=== PATIENT | male | born 1965 | race Caucasian/White ===

== ENCOUNTER 2020-12-19 01:25 | Day surgery (SDC) | payer OTHER, SELFPAY ==
[2020-12-05 14:36] VITALS: BMI 28.1
[2020-12-19 11:49] VITALS: BP 178/93; PULSE 81; RESP 20; TEMP 36.2; O2SAT 99; BMI 27.8
--- NOTE | 2020-12-19 11:57 | WPDGICN ---
Assessment and Plan Assessment and plan (1) History of colon polyps: Code(s): Z86.010 - Personal history of colonic polyps Status: Acute Assessment and Plan: Patient has a history of multiple colon polyps removed from the colon 2018. He presents today for surveillance follow-up colonoscopy. The recommendations will be given after endoscopy. GI Consult Note Consult date/time: 12/19/20 11:57 HPI: Bruce Solis is a 55 year old male Presents for surveillance colonoscopy. Patient has a history of multiple colon polyps identified and removed from the colon in 2018. Patient reports his current weight appetite bowel movements are normal. He denies abdominal pain. He has had no bleeding. His family history is noncontributory. Review of Systems Review of Systems: All systems reviewed & are unremarkable except as noted in HPI and below PMFSH Past Medical History Medical History (Updated 12/19/20 @ 11:59 by Elton An MD) Rib fracture Surgical History Surgical History H/O: hysterectomy Family History Family History Mother Hypertension Family history of elevated blood lipids Other No family history of cardiovascular disease Social History Social History (Updated 11/03/20 @ 10:02 by Marquita Whittaker PA-C) Smoking packs per day: 1 Smoking cigarettes per day: 20.0 Years smoked: 20 Smoking pack-years: 20.00 Smoking status: Former smoker Tobacco type: cigarettes Alcohol intake: current Drinks per week: 6 Living arrangements: with family Spiritual care concerns: No Meds Home Medications and Allergies Home Medications Medication Instructions Recorded Confirmed Type simvastatin 10 mg tablet 10 mg PO DAILY #90 tablet 07/24/20 12/05/20 Rx Allergies Allergy/AdvReac Type Severity Reaction Status Date / Time No Known Allergies Allergy Verified 12/19/20 11:48 Vital Signs Vital Signs - 24 hr 12/19/20 11:49 Temperature 97.1 F L Pulse Rate 81 Respiratory Rate 20 Blood Pressure 178/93 H Pulse Oximetry 99 Exam Narrative: Physical exam reveals patient to be alert. Vital signs stable. HEENT exam is unremarkable. Patient is anicteric. Lungs are clear to auscultation and percussion. Heart is without murmur or extra sounds. Abdominal exam bowel sounds are present soft nontender with no organomegaly. Digital external rectal exam is normal.
[2020-12-19] MEDS: LACTATED RINGERS 1,000 ML 150 ML IV CONT (12:03)
--- NOTE | 2020-12-19 12:12 | P.PNAN_ITS ---
Anes - Initial Pre Proc Eval Procedure: Operation Date: 12/19/20 13:00 Proposed Procedures p Screening Colonoscopy - Elton An MD Date/Time: 12/19/20 12:12 Surgeon: Elton An MD Pre Op Diagnosis: hx of colon polyps Patient Data Age: 55 Gender: M Height: 1.93 m Weight: 103.6 kg Last Vital Signs Temp 97.1 F L 12/19/20 11:49 Pulse 81 12/19/20 11:49 Resp 20 12/19/20 11:49 BP 178/93 H 12/19/20 11:49 Pulse Ox 99 12/19/20 11:49 Allergies Allergy/AdvReac Type Severity Reaction Status Date / Time No Known Allergies Allergy Verified 12/19/20 11:48 Home Medications Medication Instructions Recorded Confirmed Type simvastatin 10 mg tablet 10 mg PO DAILY #90 tablet 07/24/20 12/05/20 Rx Patient hx anesthesia problems: none Family hx anesthesia problems: none Results Review: All pre-operative results and documents have been reviewed as part of the pre-operative evaluation. [facility] Past Medical History Medical History (Updated 12/19/20 @ 12:12 by Gennaro Silver MD) Mixed hyperlipidemia Prehypertension Rib fracture Surgical History Surgical History H/O: hysterectomy Family History Family History Mother Hypertension Family history of elevated blood lipids Other No family history of cardiovascular disease Social History Social History (Updated 11/03/20 @ 10:02 by Marquita Whittaker PA-C) Smoking packs per day: 1 Smoking cigarettes per day: 20.0 Years smoked: 20 Smoking pack-years: 20.00 Smoking status: Former smoker Tobacco type: cigarettes Alcohol intake: current Drinks per week: 6 Living arrangements: with family Spiritual care concerns: No Anes - Eval Final PreProcedure Day of Procedure 12/19/20 12:12 Patient weight: overweight Heart: regular rate and rhythm Lungs: clear to auscultation Airway: Mallampati scale class II Neurological: alert and oriented Last oral intake: >/= 8 hours ASA classification: II Emergent: no Anesthetic plan: proceed Anesthesia type and monitoring: general GIVS and standard monitoring Results Review: All pre-operative results and documents have been reviewed as part of the pre-operative evaluation. Informed Consent: The patient's anesthetic plan and its attendant risks and benefits were discussed with the patient/family/POA. Questions were solicited and answers provided to the satisfaction of the patient/family/POA.
[2020-12-19 12:52] VITALS: BP 108/77; PULSE 85; RESP 16; O2SAT 97
[2020-12-19 13:02] VITALS: BP 116/82; PULSE 68; RESP 14; O2SAT 96
[2020-12-19 13:12] VITALS: BP 118/84; PULSE 70; RESP 16; O2SAT 96
== END 2020-12-19 13:27 | disposition home or self-care (01) ==
PROVIDERS: PCP Family Medicine; Visit Provider Internal Medicine Gastroenterology
PROC: 0DJD8ZZ Inspection of Lower Intestinal Tract, Via Natural or Artificial Opening Endoscopic (ICD-10-PCS; CPT 45378; principal; 2020-12-19 13:00)
DX: Z12.11 Encounter for screening for malignant neoplasm of colon (principal); K63.5 Polyp of colon; E78.5 Hyperlipidemia, unspecified; Z87.891 Personal history of nicotine dependence
CPT/HCPCS: 45385; 88305; J2001; J2704; J7120

== ENCOUNTER 2021-06-10 13:16 | Emergency (ER) | payer OTHER, SELFPAY ==
--- NOTE | 2021-06-10 13:20 | ED.WOUNDLAC ---
HPI - Wound/Laceration General Chief Complaint: Wound/Laceration Stated Complaint: THUMB LACERATION Time Seen by Provider: 06/10/21 13:20 Source: patient Mode of arrival: ambulatory Limitations: no limitations History of Present Illness HPI narrative: Mr. Solis is a 56-year-old male patient presenting to the clinic today with complaints of a cut to his left thumb from a chainsaw that occurred this morning while at work. He reports he does not think that sutures are needed as he did not cut it very much however he is not up-to-date on his tetanus shot and is requesting one today. Bleeding controlled. Related Data Allergies Allergy/AdvReac Type Severity Reaction Status Date / Time No Known Allergies Allergy Verified 05/01/21 14:31 Review of Systems Review of Systems: Pertinent positives per HPI. Patient denies any fever, chills, rash, headache, visual changes, dizziness, cough, runny nose, sore throat, shortness of breath, chest pain, palpitations, nausea, vomiting, diarrhea, constipation, abdominal pain, or any urinary issues. PMFSH Past Medical History Medical History Hepatitis C antibody test negative (04/28/21) Mixed hyperlipidemia Prehypertension Rib fracture Surgical History Surgical History H/O: hysterectomy Family History Family History Mother Hypertension Family history of elevated blood lipids Other No family history of cardiovascular disease Social History Social History Smoking packs per day: 1 Smoking cigarettes per day: 20.0 Years smoked: 20 Smoking pack-years: 20.00 Tobacco type: cigarettes Alcohol intake: current Drinks per week: 6 Spiritual care concerns: No Comments At the time of my signature, I reviewed and agree with the nursing past medical, surgical, social, and family history. There is no relevant family history pertinent to the patient complaint. Exam Narrative: General: Well-developed, well nourished, in no apparent distress Cardio: Regular rate and rhythm, s1 and s2 normal, no murmur appreciated. Resp: Clear to auscultation bilaterally, no rhonchi, rales, wheezing or rubs. Integumentary: Barnard, warm, and dry, approximately 1.5 cm horizontal laceration to the lateral thumb, laceration gaping with mild exposure of adipose tissue, unable to bring the wound edges together with pressure, no rashes. Normal range of motion of the DIP joint in the left thumb. Course Course Emergency Course: Portions of this record may have been created with voice recognition software. Level of Care: Express Care Visit Vital Signs Vital signs: Vital Signs Temperature 36.6 C 06/10/21 13:23 Pulse Rate 80 06/10/21 13:23 Respiratory Rate 16 06/10/21 13:23 Blood Pressure 124/88 06/10/21 13:23 Pulse Oximetry 98 06/10/21 13:23 Temperature 36.6 C 06/10/21 13:23 Pulse Rate 80 06/10/21 13:23 Respiratory Rate 16 06/10/21 13:23 Blood Pressure 124/88 06/10/21 13:23 Pulse Oximetry 98 06/10/21 13:23 Vital signs reviewed MDM - Wound/Laceration MDM Narrative Medical decision making narrative: At the time of assessment left thumb wound was dressed with 2 x 2 gauze and Kerlix. This was removed and a 1.5 cm laceration to the left lateral thumb was examined. Was unable to bring wound edges together well approximated and I do not feel that sutures will improve this. Mild adipose tissue is noted however wound appears to be pretty clean. We will clean and dress the wound today without suturing or Steri-Strips as this will not improve the healing time. No foreign body or tendon visualized. Patient has adequate range of motion in the DIP joint of the left thumb. We will give him a Tdap(Boostrix) shot today. Td was ordered
[2021-06-10 13:23] VITALS: BP 124/88; PULSE 80; RESP 16; TEMP 36.6; O2SAT 98
[2021-06-10] MEDS: TETANUS,DIPHTHERIA,AC PERTUSSIS ADULT (0.5 ML) BOOSTRIX IM (13:35)
--- NOTE | 2021-06-10 14:03 | PC.NURSE ---
Unable to scan med as wrong tetanus immunization initially entered, and patient want to leave before new order could be placed.
== END 2021-06-10 13:47 | disposition home or self-care (01) ==
PROVIDERS: Emergency Provider Nurse Practitioner Family; PCP Family Medicine
DX: S61.012A Laceration without foreign body of left thumb without damage to nail, initial encounter (principal); W29.3XXA Contact with powered garden and outdoor hand tools and machinery, initial encounter; Z23 Encounter for immunization; E78.2 Mixed hyperlipidemia; R03.0 Elevated blood-pressure reading, without diagnosis of hypertension; F17.210 Nicotine dependence, cigarettes, uncomplicated
CPT/HCPCS: 90471; 90715; 99212; G0463